=== PATIENT | male | born 1985 | race Caucasian/White ===

== ENCOUNTER 2019-10-28 13:50 | Emergency (ER) | payer MEDICAID, OTHER ==
[~2019-10-28] VITALS: Ht 170.2 cm; Wt 100.0 kg
[~2019-10-28 13:50] MED LIST: NO HOME MEDS; ONDA4TAB6 PO; PANT20TA2 PO
[2019-10-28 14:41] LABS: BASOPHILS % (AUTO) 0.3 % (0-1); EOSINOPHILS # (AUTO) 0.1 X10'3 (0-0.9); EOSINOPHILS % (AUTO) 0.6 % (0-6); HEMATOCRIT 44.9 % (42.0-52.0); HEMOGLOBIN 15.4 g/dl (14.0-17.9); LYMPHOCYTES % (AUTO) 14.8 % (21-51); MEAN CORPUSCULAR HEMOGLOBIN 30.4 PG (27.0-31.0); MEAN CORPUSCULAR HGB CONC 34.3 g/dL (33.0-36.5); MEAN CORPUSCULAR VOLUME 88.6 FL (78-98); MEAN PLATELET VOLUME 8.5 FL (7.4-10.4); MONOCYTES # (AUTO) 0.9 X10'3 (0-0.9); MONOCYTES % (AUTO) 6.8 % (2-12); NEUTROPHILS # (AUTO) 10.7 X10'3 (1.8-7.7); NEUTROPHILS % (AUTO) 77.5 % (42-75); PLATELET COUNT 197 X10'3 (140-440); RED BLOOD COUNT 5.07 X10'6 (4.70-6.10); WHITE BLOOD COUNT 13.8 X10'3 (4.5-11.0)
[2019-10-28 14:53] LABS: ALANINE AMINOTRANSFERASE 37 U/L (12-78); ALBUMIN/GLOBULIN RATIO 1.1 (1.1-1.5); ALKALINE PHOSPHATASE 69 IU/L (46-116); ANION GAP 6 (8-16); ASPARTATE AMINO TRANSFERASE 31 U/L (10-37); BILIRUBIN,TOTAL 0.7 MG/DL (0.1-1.0); BLOOD UREA NITROGEN 18 MG/DL (7-18); BUN/CREATININE RATIO 15.3 (5.4-32.0); CALCIUM 9.2 MG/DL (8.5-10.1); CHLORIDE 105 MMOL/L (99-107); CREATININE 1.18 MG/DL (0.60-1.10); GLUCOSE 103 MG/DL (70-104); LIPASE 152 U/L (73-393); POTASSIUM 3.9 MMOL/L (3.5-5.1); SODIUM 140 MMOL/L (135-145); TOTAL CARBON DIOXIDE 28.8 MMOL/L (24-32); TOTAL PROTEIN 7.5 G/DL (6.4-8.2); eGFR 70 ML/MIN
[2019-10-28 15:54] VITALS: BP 140/96
[2019-10-28 16:00] LABS: CLARITY,URINE CLEAR (Clear); COLOR,URINE YELLOW (Yellow); GLUCOSE, URINE NEGATIVE (Neg); KETONES,URINE NEGATIVE (Neg); LEUKOCYTE ESTERASE ,URINE NEGATIVE (Neg); NITRITES, URINE NEGATIVE (Neg); OCCULT BLOOD,URINE TRACE-LYSED (Neg); PROTEIN,URINE NEGATIVE (Neg); UROBILINOGEN,URINE 0.2 E.U/dL (0.2-1.0)
--- NOTE | 2019-10-28 16:00 | NUR ---
POOR APPETITE FOR 2 DAYS, VOMITING: GREEN FLUID, POOR PO INTAKE
[2019-10-28 16:01] LABS: UA COLLECTION TYPE CLN CATCH MIDSTREAM
[2019-10-28 16:08] LABS: MUCUS STRANDS MODERATE /LPF (Neg); SQUAMOUS EPITHELIAL CELL,UR FEW /LPF (FEW)
[2019-10-28] MEDS ORDERED: ondansetron 4mg rapidly disintigrating tab PO ONE (16:15)
[2019-10-28] MEDS ORDERED: ketorolac trometh. 30mg/ml inj. IV ONE (16:15)
[2019-10-28 16:20] LABS: BACTERIA,URINE 1+ /HPF (Neg); RBC,URINE 0-2 /HPF (0-2); WBC,URINE 0-4 /HPF (0-4)
[2019-10-28] MEDS ORDERED: ketorolac trometh inj. 60 MG/2 ML VIAL IM ONE (16:25)
[2019-10-28] MEDS ORDERED: morphine 4 MG/ML inj SYRINge IM ONE (16:40)
[2019-10-28] MEDS ORDERED: ONDA4TAB6 PO (16:47)
[2019-10-28] MEDS ORDERED: HYDR-3965 PO (16:47)
[2019-10-28] MEDS ORDERED: FLO0.4C PO (16:47)
== END 2019-10-28 17:41 | disposition home or self-care (01) ==
LOC: ER 13:51
DX: N20.0 Calculus of kidney (principal); F17.200 Nicotine dependence, unspecified, uncomplicated; F10.99 Alcohol use, unspecified with unspecified alcohol-induced disorder; Z86.69 Personal history of other diseases of the nervous system and sense organs; Z88.0 Allergy status to penicillin; Z79.899 Other long term (current) drug therapy; Y90.9 Presence of alcohol in blood, level not specified
CPT/HCPCS: 36415; 80053; 81001; 83690; 85025; 96372; 99284; J1885; J2270; 99283

== ENCOUNTER 2020-04-09 07:45 | Emergency (ER) | payer MEDICAID, OTHER ==
[~2020-04-09] VITALS: Ht 170.2 cm; Wt 99.1 kg
[~2020-04-09 07:45] MED LIST changes: -PANT20TA2 PO
[2020-04-09] MEDS ORDERED: ondansetron/PF 4mg/2ml inj IV ONE (08:10)
[2020-04-09] MEDS ORDERED: morphine 4 MG/ML inj SYRINge IV ONE ×3 (08:10→10:15)
[2020-04-09] MEDS ORDERED: ketorolac trometh. 30mg/ml inj. IV ONE ×2 (08:10→09:20)
[2020-04-09 08:31] LABS: BASOPHILS # (AUTO) 0.1 X10'3 (0-0.2); BASOPHILS % (AUTO) 0.5 % (0-1); EOSINOPHILS # (AUTO) 0.1 X10'3 (0-0.9); EOSINOPHILS % (AUTO) 1.1 % (0-6); HEMATOCRIT 45.2 % (42.0-52.0); HEMOGLOBIN 15.4 g/dl (14.0-17.9); LYMPHOCYTES # (AUTO) 2.2 X10'3 (1.1-4.8); LYMPHOCYTES % (AUTO) 19.1 % (21-51); MEAN CORPUSCULAR VOLUME 88.2 FL (78-98); MEAN PLATELET VOLUME 8.5 FL (7.4-10.4); MONOCYTES % (AUTO) 8.6 % (2-12); NEUTROPHILS # (AUTO) 8.2 X10'3 (1.8-7.7); NEUTROPHILS % (AUTO) 70.7 % (42-75); PLATELET COUNT 206 X10'3 (140-440); RED BLOOD COUNT 5.13 X10'6 (4.70-6.10); RED CELL DISTRIBUTION WIDTH 12.9 % (11.5-14.5); WHITE BLOOD COUNT 11.5 X10'3 (4.5-11.0)
[2020-04-09 08:41] LABS: CLARITY,URINE SLIGHTLY CLOUDY (Clear); COLOR,URINE YELLOW (Yellow); GLUCOSE, URINE NEGATIVE (Neg); KETONES,URINE NEGATIVE (Neg); LEUKOCYTE ESTERASE ,URINE NEGATIVE (Neg); NITRITES, URINE NEGATIVE (Neg); OCCULT BLOOD,URINE LARGE (Neg); PROTEIN,URINE TRACE mg/dl (Neg); UROBILINOGEN,URINE 0.2 E.U/dL (0.2-1.0)
[2020-04-09 08:43] LABS: UA COLLECTION TYPE VOIDED
[2020-04-09 08:50] LABS: RBC,URINE TNTC /HPF (0-2)
[2020-04-09 08:51] LABS: BACTERIA,URINE FEW /HPF (Neg); MUCUS STRANDS NONE SEEN /LPF (Neg); SQUAMOUS EPITHELIAL CELL,UR FEW /LPF (FEW)
[2020-04-09 08:53] LABS: ALANINE AMINOTRANSFERASE 46 U/L (12-78); ALBUMIN 3.7 G/DL (3.4-5.0); ALBUMIN/GLOBULIN RATIO 1.1 (1.1-1.5); ALKALINE PHOSPHATASE 60 IU/L (46-116); AMYLASE 123 U/L (25-115); ANION GAP 8 (8-16); ASPARTATE AMINO TRANSFERASE 28 U/L (10-37); BILIRUBIN,TOTAL 0.3 MG/DL (0.1-1.0); BLOOD UREA NITROGEN 19 MG/DL (7-18); BUN/CREATININE RATIO 17.9 (5.4-32.0); CHLORIDE 110 MMOL/L (99-107); CREATININE 1.06 MG/DL (0.60-1.10); GLUCOSE 133 MG/DL (70-104); LIPASE 231 U/L (73-393); POTASSIUM 4.1 MMOL/L (3.5-5.1); SODIUM 140 MMOL/L (135-145); TOTAL CARBON DIOXIDE 21.6 MMOL/L (24-32); TOTAL PROTEIN 7.2 G/DL (6.4-8.2); eGFR 79 ML/MIN
[2020-04-09] MEDS ORDERED: CefTRIAXone/D5W-Rocephin 1gm 50 ML IV ONE (08:55)
[2020-04-09] MEDS ORDERED: normal saline 1000ml 1,000 ML IV ONE (09:20)
--- NOTE | 2020-04-09 09:29 | NUR ---
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
[2020-04-09] MEDS ORDERED: acetaminophen 325mg tablet PO ONE (10:10)
[2020-04-09] MEDS ORDERED: HYDROcodone/acetaminophen 5mg/325mg tablet PO ONE (10:10)
[2020-04-09] MEDS ORDERED: tamsulosin 0.4mg capsule PO ONE (10:10)
[2020-04-09] MEDS ORDERED: FLO0.4C PO (10:11)
[2020-04-09] MEDS ORDERED: HYDR-3965 PO (10:11)
[2020-04-09] MEDS ORDERED: ONDA8TAB6 PO (10:11)
[2020-04-09] MEDS ORDERED: CIP750T PO (10:11)
[2020-04-09 10:39] VITALS: BP 136/92
== END 2020-04-09 10:39 | disposition home or self-care (01) ==
LOC: ER 07:45
DX: N20.0 Calculus of kidney (principal); R11.2 Nausea with vomiting, unspecified; Z86.69 Personal history of other diseases of the nervous system and sense organs; Z72.89 Other problems related to lifestyle; Z88.0 Allergy status to penicillin; Z79.899 Other long term (current) drug therapy
CPT/HCPCS: 36415; 74176; 80053; 81001; 82150; 83690; 85025; 87088; 96361; 96365; 96375; 96376; 99284; J0696; J1885; J2270; J2405; J7030

== ENCOUNTER 2020-04-13 17:26 | Emergency (ER) | payer SELFPAY ==
[~2020-04-13] VITALS: Ht 170.2 cm; Wt 101.5 kg
[~2020-04-13 17:26] MED LIST changes: +CIP750T PO; +FLO0.4C PO; +HYDR-3965 PO; +ONDA8TAB6 PO
[2020-04-13] MEDS ORDERED: morphine 4 MG/ML inj SYRINge IV ONE ×2 (18:35→19:50)
[2020-04-13] MEDS ORDERED: ketorolac tromethamine 15mg/ml inj. IV ONE (18:35)
[2020-04-13] MEDS ORDERED: normal saline 1000ml 1,000 ML IV ONE (18:35)
[2020-04-13] MEDS ORDERED: ondansetron/PF 4mg/2ml inj IV ONE ×2 (18:35→19:50)
[2020-04-13 18:54] LABS: CLARITY,URINE CLEAR (Clear); COLOR,URINE YELLOW (Yellow); GLUCOSE, URINE NEGATIVE (Neg); KETONES,URINE NEGATIVE (Neg); LEUKOCYTE ESTERASE ,URINE NEGATIVE (Neg); NITRITES, URINE NEGATIVE (Neg); OCCULT BLOOD,URINE TRACE-INTACT (Neg); PROTEIN,URINE NEGATIVE (Neg); UROBILINOGEN,URINE 0.2 E.U/dL (0.2-1.0)
[2020-04-13 19:02] LABS: BACTERIA,URINE NONE SEEN /HPF (Neg); RBC,URINE 0-2 /HPF (0-2); SQUAMOUS EPITHELIAL CELL,UR FEW /LPF (FEW); UA COLLECTION TYPE CLN CATCH MIDSTREAM; WBC,URINE NONE SEEN /HPF (0-4)
[2020-04-13 19:28] LABS: BASOPHILS # (AUTO) 0.1 X10'3 (0-0.2); EOSINOPHILS # (AUTO) 0.2 X10'3 (0-0.9); LYMPHOCYTES # (AUTO) 2.8 X10'3 (1.1-4.8)
[2020-04-13 19:29] LABS: BASOPHILS % (AUTO) 0.6 % (0-1); EOSINOPHILS % (AUTO) 1.4 % (0-6); HEMATOCRIT 45.7 % (42.0-52.0); HEMOGLOBIN 15.5 g/dl (14.0-17.9); LYMPHOCYTES % (AUTO) 21.9 % (21-51); MEAN CORPUSCULAR HEMOGLOBIN 30.3 PG (27.0-31.0); MEAN CORPUSCULAR VOLUME 89.2 FL (78-98); MEAN PLATELET VOLUME 8.5 FL (7.4-10.4); MONOCYTES # (AUTO) 1.1 X10'3 (0-0.9); MONOCYTES % (AUTO) 8.3 % (2-12); NEUTROPHILS # (AUTO) 8.6 X10'3 (1.8-7.7); NEUTROPHILS % (AUTO) 67.8 % (42-75); PLATELET COUNT 199 X10'3 (140-440); RED BLOOD COUNT 5.13 X10'6 (4.70-6.10); WHITE BLOOD COUNT 12.7 X10'3 (4.5-11.0)
[2020-04-13 19:42] LABS: ALANINE AMINOTRANSFERASE 56 U/L (12-78); ALBUMIN 3.6 G/DL (3.4-5.0); ALKALINE PHOSPHATASE 60 IU/L (46-116); ANION GAP 9 (8-16); ASPARTATE AMINO TRANSFERASE 29 U/L (10-37); BILIRUBIN,TOTAL 0.3 MG/DL (0.1-1.0); BLOOD UREA NITROGEN 15 MG/DL (7-18); BUN/CREATININE RATIO 13.3 (5.4-32.0); CALCIUM 8.8 MG/DL (8.5-10.1); CHLORIDE 105 MMOL/L (99-107); CREATININE 1.13 MG/DL (0.60-1.10); GLUCOSE 122 MG/DL (70-104); LIPASE 141 U/L (73-393); SODIUM 139 MMOL/L (135-145); TOTAL CARBON DIOXIDE 25.5 MMOL/L (24-32); TOTAL PROTEIN 7.1 G/DL (6.4-8.2); eGFR 73 ML/MIN
[2020-04-13] MEDS ORDERED: ONDA4TAB6 PO (19:51)
[2020-04-13] MEDS ORDERED: HYDR-4353 PO (19:51)
[2020-04-13 20:42] VITALS: BP 120/88
== END 2020-04-13 20:40 | disposition home or self-care (01) ==
LOC: ER 17:27
DX: N20.9 Urinary calculus, unspecified (principal); R11.2 Nausea with vomiting, unspecified; Z86.69 Personal history of other diseases of the nervous system and sense organs; Z72.89 Other problems related to lifestyle; Z88.0 Allergy status to penicillin; Z79.899 Other long term (current) drug therapy
CPT/HCPCS: 36415; 80053; 81001; 83690; 85025; 96361; 96374; 96375; 96376; 99284; J1885; J2270; J2405; J7030

== ENCOUNTER 2021-01-15 10:05 | Emergency (ER) | payer MEDICAID, OTHER ==
[~2021-01-15] VITALS: Ht 170.2 cm; Wt 220.0 kg
[~2021-01-15 10:05] MED LIST changes: -CIP750T PO; -FLO0.4C PO; -HYDR-3965 PO
[2021-01-15] MEDS ORDERED: normal saline 1000ML IV soln IVB ONE (11:00)
[2021-01-15] MEDS ORDERED: ketorolac tromethamine 15mg/ml inj. IV ONE (11:00)
[2021-01-15] MEDS ORDERED: pantoprazole 40 MG vial IV ONE (11:00)
[2021-01-15] MEDS ORDERED: proCHLORperazine 10 MG/2 ml inj IV ONE (11:10)
[2021-01-15 11:23] LABS: BASOPHILS # (AUTO) 0.1 X10'3 (0-0.2); BASOPHILS % (AUTO) 0.6 % (0-1); EOSINOPHILS # (AUTO) 0.1 X10'3 (0-0.9); EOSINOPHILS % (AUTO) 0.5 % (0-6); HEMATOCRIT 46.1 % (42.0-52.0); HEMOGLOBIN 15.8 g/dl (14.0-17.9); LYMPHOCYTES # (AUTO) 2.3 X10'3 (1.1-4.8); LYMPHOCYTES % (AUTO) 13.4 % (21-51); MEAN CORPUSCULAR HEMOGLOBIN 29.8 PG (27.0-31.0); MEAN CORPUSCULAR HGB CONC 34.3 g/dL (33.0-36.5); MEAN CORPUSCULAR VOLUME 86.8 FL (78-98); MONOCYTES % (AUTO) 6.1 % (2-12); NEUTROPHILS # (AUTO) 13.4 X10'3 (1.8-7.7); NEUTROPHILS % (AUTO) 79.4 % (42-75); PLATELET COUNT 209 X10'3 (140-440); RED BLOOD COUNT 5.31 X10'6 (4.70-6.10); RED CELL DISTRIBUTION WIDTH 12.7 % (11.5-14.5); WHITE BLOOD COUNT 16.9 X10'3 (4.5-11.0)
[2021-01-15 11:41] LABS: ALANINE AMINOTRANSFERASE 40 U/L (12-78); ALBUMIN/GLOBULIN RATIO 0.9 (1.1-1.5); ALKALINE PHOSPHATASE 75 IU/L (46-116); ANION GAP 12 (8-16); ASPARTATE AMINO TRANSFERASE 24 U/L (10-37); BILIRUBIN,TOTAL 0.7 MG/DL (0.1-1.0); BLOOD UREA NITROGEN 19 MG/DL (7-18); BUN/CREATININE RATIO 21.6 (5.4-32.0); CALCIUM 9.5 MG/DL (8.5-10.1); CHLORIDE 104 MMOL/L (99-107); CREATININE 0.88 MG/DL (0.60-1.10); GLUCOSE 101 MG/DL (70-104); SODIUM 140 MMOL/L (135-145); TOTAL CARBON DIOXIDE 24.4 MMOL/L (24-32); TOTAL PROTEIN 8.3 G/DL (6.4-8.2); eGFR > 90 ML/MIN
--- NOTE | 2021-01-15 11:56 | NUR ---
PT MEDICATED WITH COMPAZINE, FLUIDS, TORADOL
[2021-01-15 12:08] LABS: CLARITY,URINE CLEAR (Clear); COLOR,URINE YELLOW (Yellow); GLUCOSE, URINE NEGATIVE (Neg); KETONES,URINE TRACE mg/dl (Neg); LEUKOCYTE ESTERASE ,URINE NEGATIVE (Neg); NITRITES, URINE NEGATIVE (Neg); OCCULT BLOOD,URINE NEGATIVE (Neg); PROTEIN,URINE NEGATIVE (Neg); UROBILINOGEN,URINE 0.2 E.U/dL (0.2-1.0)
[2021-01-15] MEDS ORDERED: diphenhydrAMINE 50 mg/ml inj IV ONE (12:10)
--- NOTE | 2021-01-15 12:21 | NUR ---
PT GIVEN BENADRYL 50MG FOR RXN TO COMPAZINE. PT STATES RELIEF.
[2021-01-15 12:27] LABS: UA COLLECTION TYPE URINAL
--- NOTE | 2021-01-15 14:17 | NUR ---
pt resting on back with eyes closed rr equal and unlabored. no needs at this time
[2021-01-15] MEDS ORDERED: sucralfate 1gm/10ml UD suspension PO STA (14:23)
[2021-01-15] MEDS ORDERED: famotidine/PF 10 mg/ml inj IV ONE (14:25)
[2021-01-15] MEDS ORDERED: FAMO20TA47 PO (14:36)
[2021-01-15] MEDS ORDERED: PANT20TA2 PO (14:36)
[2021-01-15] MEDS ORDERED: ONDA4TAB6 PO (14:37)
[2021-01-15 14:58] VITALS: BP 100/73
== END 2021-01-15 15:06 | disposition home or self-care (01) ==
LOC: ER 10:06
DX: K29.70 Gastritis, unspecified, without bleeding (principal); R11.2 Nausea with vomiting, unspecified; R53.83 Other fatigue; R10.84 Generalized abdominal pain; F17.200 Nicotine dependence, unspecified, uncomplicated; Z86.69 Personal history of other diseases of the nervous system and sense organs; Z87.442 Personal history of urinary calculi; Z72.89 Other problems related to lifestyle; Z88.0 Allergy status to penicillin; Z79.899 Other long term (current) drug therapy
CPT/HCPCS: 36415; 74176; 80053; 81003; 85025; 93005; 96361; 96374; 96375; 99285; C9113; J0780; J1200; J1885; J3490; J7030

== ENCOUNTER 2021-06-03 17:15 | Emergency (ER) | payer MEDICAID, OTHER ==
[~2021-06-03] VITALS: Ht 170.2 cm; Wt 106.8 kg
[~2021-06-03 17:15] MED LIST changes: +FAMO20TA47 PO; +PANT20TA2 PO
[2021-06-03] MEDS ORDERED: TETanus/Pertussis (Acell)/Diphther VAC/PF (Tdap-Adult) 0.5ml syringe IMVAC ONE (20:00)
[2021-06-03 20:08] VITALS: BP 134/97
== END 2021-06-03 20:26 | disposition home or self-care (01) ==
LOC: ER 17:16
DX: S80.11XA Contusion of right lower leg, initial encounter (principal); S80.811A Abrasion, right lower leg, initial encounter; M79.661 Pain in right lower leg; Z86.69 Personal history of other diseases of the nervous system and sense organs; Z87.442 Personal history of urinary calculi; Z72.89 Other problems related to lifestyle; Z88.0 Allergy status to penicillin; Z79.899 Other long term (current) drug therapy; Z20.3 Contact with and (suspected) exposure to rabies; X58.XXXA Exposure to other specified factors, initial encounter; Y93.01 Activity, walking, marching and hiking; Y92.89 Other specified places as the place of occurrence of the external cause; Y99.8 Other external cause status
CPT/HCPCS: 73590; 90471; 90715; 99283

== ENCOUNTER 2021-08-22 07:59 | Emergency (ER) | payer OTHER ==
[~2021-08-22] VITALS: Ht 170.2 cm; Wt 100.0 kg
[2021-08-22] MEDS ORDERED: normal saline 1000ML IV soln IVB ONE (08:05)
[2021-08-22 08:53] LABS: BASOPHILS % (AUTO) 0.3 % (0-1); EOSINOPHILS # (AUTO) 0.1 X10'3 (0-0.9); EOSINOPHILS % (AUTO) 0.8 % (0-6); HEMATOCRIT 44.5 % (42.0-52.0); HEMOGLOBIN 15.5 g/dl (14.0-17.9); LYMPHOCYTES # (AUTO) 1.7 X10'3 (1.1-4.8); LYMPHOCYTES % (AUTO) 15.8 % (21-51); MEAN CORPUSCULAR HEMOGLOBIN 29.9 PG (27.0-31.0); MEAN CORPUSCULAR HGB CONC 34.8 g/dL (33.0-36.5); MEAN CORPUSCULAR VOLUME 85.9 FL (78-98); MEAN PLATELET VOLUME 8.5 FL (7.4-10.4); MONOCYTES # (AUTO) 0.7 X10'3 (0-0.9); MONOCYTES % (AUTO) 6.2 % (2-12); NEUTROPHILS # (AUTO) 8.2 X10'3 (1.8-7.7); NEUTROPHILS % (AUTO) 76.9 % (42-75); PLATELET COUNT 201 X10'3 (140-440); RED BLOOD COUNT 5.18 X10'6 (4.70-6.10); RED CELL DISTRIBUTION WIDTH 13.1 % (11.5-14.5); WHITE BLOOD COUNT 10.7 X10'3 (4.5-11.0)
[2021-08-22 09:19] LABS: CLARITY,URINE CLEAR (Clear); COLOR,URINE YELLOW (Yellow); GLUCOSE, URINE NEGATIVE (Neg); KETONES,URINE NEGATIVE (Neg); LEUKOCYTE ESTERASE ,URINE NEGATIVE (Neg); NITRITES, URINE NEGATIVE (Neg); OCCULT BLOOD,URINE NEGATIVE (Neg); PROTEIN,URINE NEGATIVE (Neg); UA COLLECTION TYPE CLN CATCH MIDSTREAM; UROBILINOGEN,URINE 0.2 E.U/dL (0.2-1.0)
[2021-08-22 09:20] LABS: URINE AMPHETAMINE SCREEN NEGATIVE (Neg); URINE BARBITUATE SCREEN NEGATIVE (Neg); URINE BENZODIAZEPINES SCREEN NEGATIVE (Neg); URINE CANNABINOID SCREEN POSITIVE (Neg); URINE COCAINE SCREEN NEGATIVE (Neg); URINE METHADONE SCREEN NEGATIVE (Neg); URINE OPIATE SCREEN NEGATIVE (Neg); URINE PHENCYCLIDINE SCREEN NEGATIVE (Neg)
[2021-08-22 09:26] LABS: ALANINE AMINOTRANSFERASE 29 U/L (12-78); ALBUMIN 3.9 G/DL (3.4-5.0); ALKALINE PHOSPHATASE 76 IU/L (46-116); ASPARTATE AMINO TRANSFERASE 21 U/L (10-37); BILIRUBIN,TOTAL 0.4 MG/DL (0.1-1.0); BLOOD UREA NITROGEN 15 MG/DL (7-18); BUN/CREATININE RATIO 16.3 (5.4-32.0); CALCIUM 8.9 MG/DL (8.5-10.1); CREATININE 0.92 MG/DL (0.60-1.10); ETHANOL < 0.010 GM/DL (0.0-0.010); GLUCOSE 124 MG/DL (70-104); POTASSIUM 3.7 MMOL/L (3.5-5.1); TOTAL CARBON DIOXIDE 24.2 MMOL/L (24-32); TOTAL PROTEIN 7.7 G/DL (6.4-8.2); eGFR > 90 ML/MIN
[2021-08-22 09:30] LABS: ANION GAP 10 (8-16); CHLORIDE 106 MMOL/L (99-107); SODIUM 140 MMOL/L (135-145)
[2021-08-22 09:55] VITALS: BP 131/93
== END 2021-08-22 10:18 | disposition home or self-care (01) ==
LOC: ER 07:59
DX: R55 Syncope and collapse (principal); R42 Dizziness and giddiness; R20.0 Anesthesia of skin
CPT/HCPCS: 36415; 70450; 71045; 80053; 80305; 80320; 81003; 82948; 85025; 93005; 96360; 99285; J7030

== ENCOUNTER 2022-06-28 07:27 | Emergency (ER) | payer MEDICAID, OTHER ==
[~2022-06-28] VITALS: Ht 170.2 cm; Wt 104.5 kg
[2022-06-28] MEDS ORDERED: LIDOcaine 1% W/epiNEPHrine 1:100,000 20ml vial SQ ONE (07:45)
[2022-06-28] MEDS ORDERED: morphine 4 MG/ML inj SYRINge IM ONE ×2 (07:45→11:05)
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
[2022-06-28 08:14] VITALS: BP 144/99
[2022-06-28] MEDS ORDERED: HYDROcodone/acetaminophen 10/325mg tab PO ONE (09:10)
[2022-06-28] MEDS ORDERED: oxyCODONE/APAP 10/325mg tablet PO ONE (10:25)
[2022-06-28] MEDS ORDERED: ketorolac trometh. 30mg/ml inj. IM ONE (11:05)
[2022-06-28] MEDS ORDERED: OXYC-150 PO (11:43)
[2022-06-28] MEDS ORDERED: NEOM28.37 TOP (11:55)
== END 2022-06-28 12:05 | disposition home or self-care (01) ==
LOC: ER 07:27
DX: S01.81XA Laceration without foreign body of other part of head, initial encounter (principal); F12.90 Cannabis use, unspecified, uncomplicated; Z86.69 Personal history of other diseases of the nervous system and sense organs; Z87.442 Personal history of urinary calculi; Z88.0 Allergy status to penicillin; Z79.899 Other long term (current) drug therapy; Y08.89XA Assault by other specified means, initial encounter; Y93.89 Activity, other specified; Y92.89 Other specified places as the place of occurrence of the external cause; Y99.8 Other external cause status
CPT/HCPCS: 12013; 70486; 96372; 99284; J1885; J2270; J7030; A6449

== ENCOUNTER 2022-07-02 10:28 | Emergency (ER) | payer MEDICAID, OTHER ==
[~2022-07-02] VITALS: Ht 170.2 cm; Wt 104.5 kg
[~2022-07-02 10:28] MED LIST changes: +NEOM28.37 TOP; +OXYC-150 PO
[2022-07-02 10:32] VITALS: BP 137/84
[2022-07-02] MEDS ORDERED: ERYT1OIN6 RIGHTEYE (11:29)
== END 2022-07-02 11:38 | disposition home or self-care (01) ==
LOC: ER 10:29
DX: H57.11 Ocular pain, right eye (principal); M79.89 Other specified soft tissue disorders; H57.89 Other specified disorders of eye and adnexa; F12.10 Cannabis abuse, uncomplicated; Z87.442 Personal history of urinary calculi; Z88.0 Allergy status to penicillin; Z79.899 Other long term (current) drug therapy; Z79.2 Long term (current) use of antibiotics
CPT/HCPCS: 99283

== ENCOUNTER 2022-07-07 09:32 | Emergency (ER) | payer MEDICAID ==
[~2022-07-07] VITALS: Ht 170.2 cm; Wt 104.5 kg
[~2022-07-07 09:32] MED LIST changes: +ERYT1OIN6 RIGHTEYE
[2022-07-07 09:42] VITALS: BP 143/93
== END 2022-07-07 10:19 | disposition home or self-care (01) ==
LOC: ER 09:33
DX: T81.89XA Other complications of procedures, not elsewhere classified, initial encounter (principal); F12.90 Cannabis use, unspecified, uncomplicated; Z88.0 Allergy status to penicillin
CPT/HCPCS: 99281

== ENCOUNTER 2024-02-03 12:01 | Emergency (ER) | payer MEDICAID, OTHER ==
[~2024-02-03] VITALS: Ht 170.2 cm; Wt 103.5 kg
[~2024-02-03 12:01] MED LIST changes: -ERYT1OIN6 RIGHTEYE
[2024-02-03] MEDS ORDERED: CLIN300C54 PO (13:21)
[2024-02-03 13:26] VITALS: BP 138/87; PULSE 89; RESP 17; TEMP 98.2; O2SAT 99
== END 2024-02-03 13:28 | disposition home or self-care (01) ==
LOC: ER 12:02
DX: K04.7 Periapical abscess without sinus (principal); F12.90 Cannabis use, unspecified, uncomplicated; Z88.0 Allergy status to penicillin; Z79.2 Long term (current) use of antibiotics; Z79.899 Other long term (current) drug therapy; Z87.442 Personal history of urinary calculi
CPT/HCPCS: 99281; 99283